=== PATIENT | male | born 1975 | race Caucasian/White ===

== ENCOUNTER 2020-06-10 17:10 | Inpatient (IN) | payer OTHER ==
[2020-06-10 18:32] LABS: HEMOGLOBIN 13.9 gm/dl (14.0-17.5); RED BLOOD COUNT 4.74 M/UL (4.20-5.50); WHITE BLOOD COUNT 10.6 K/UL (4.5-11.0)
[2020-06-10 18:40] LABS: BUN/CREATININE RATIO 8 (0-10)
[2020-06-10] MEDS ORDERED: LEVOXYL200 MCG PO (20:37)
[2020-06-10] MEDS ORDERED: METHADONE HCL40 MG PO (20:37)
[2020-06-10] MEDS ORDERED: CATAPRES 0.1MG0.1 MG PO (20:40)
[2020-06-10] MEDS ORDERED: QUETIAPINE FUM200 MG PO (20:40)
[2020-06-11 04:36] LABS: RED BLOOD COUNT 4.73 M/UL (4.20-5.50); WHITE BLOOD COUNT 9.7 K/UL (4.5-11.0)
[2020-06-11 05:05] LABS: BUN/CREATININE RATIO 9 (0-10)
[2020-06-11] MEDS ORDERED: VENLAFAXINE HCL75 M1 PO (20:39)
[2020-06-12] MEDS ORDERED: SENNA-TIME S T1 EACH PO (09:42)
[2020-06-12] MEDS ORDERED: POLYETHYLENE GL17 GM PO (09:42)
== END 2020-06-12 12:40 | disposition home or self-care (01) | DRG 906 ==
LOC: ER1 17:10 → M/S 18:15 → CDU 18:15 → M/S 20:55
PROVIDERS: Orthopaedic Surgery; Physician Assistant Medical; ADMIT Internal Medicine
PROC: 0X6R0Z3 Detachment at Left Middle Finger, Low, Open Approach (ICD-10-PCS; principal; 2020-06-11 11:30)
DX: S68.623A Partial traumatic transphalangeal amputation of left middle finger, initial encounter (principal); F39 Unspecified mood [affective] disorder; E89.0 Postprocedural hypothyroidism; F17.210 Nicotine dependence, cigarettes, uncomplicated; F11.90 Opioid use, unspecified, uncomplicated; W34.09XA Accidental discharge from other specified firearms, initial encounter; Y93.89 Activity, other specified; Y92.009 Unspecified place in unspecified non-institutional (private) residence as the place of occurrence of the external cause; Z85.850 Personal history of malignant neoplasm of thyroid; Z79.890 Hormone replacement therapy
CPT/HCPCS: 29130; 36415; 73130; 80048; 80053; 83036; 85025; 85027; 85610; 85730; 93005; 96374; 96375; 99284; J0690; J2001; J2250; J2270; J2405; J2704; J3010; J7120; U0002